=== PATIENT | male | born 1950 | race Hispanic/Latino ===

== ENCOUNTER 2016-07-24 11:50 | Emergency (ER) | payer MEDICARE ==
[2016-07-24 13:13] VITALS: BP 122/74
[2016-07-24 14:03] LABS: Basophils % (Auto) 0.7 % (0.0-1.8); Eosinophils % (Auto) 7.2 % (0.0-4.3); Hematocrit 38.4 % (35.5-45.6); Hemoglobin 12.4 gm/dl (11.8-15.2); Mean Corpuscular HGB Conc 32 % (32-34); Mean Corpuscular Hemoglobin 28 pg (28-32); Mean Corpuscular Volume 88 fl (84-94); Platelet Count 414 K/mm3 (140-440); Red Blood Count 4.37 M/mm3 (3.65-5.03); White Blood Count 8.4 K/mm3 (4.5-11.0)
[2016-07-24 14:05] LABS: Red Cell Distribution Width 20.4 % (13.2-15.2)
[2016-07-24 14:10] LABS: Anion Gap 16 mmol/L; Blood Urea Nitrogen 8 mg/dL (9-20); Calcium 8.3 mg/dL (8.4-10.2); Carbon Dioxide 25 mmol/L (22-30); Chloride 105.3 mmol/L (98-107); Glucose 75 mg/dL (75-100); Sodium 142 mmol/L (137-145)
[2016-07-24 15:10] LABS: Valproate 33.1 ug/mL (50-100)
[2016-07-24 15:11] LABS: Salicylate < 0.3 mg/dL (2.8-20.0)
[2016-07-24 15:49] LABS: Urine Drugs of Abuse Note Disclamer
[2016-07-24 16:08] LABS: Bilirubin,Urine NEG (Negative); Blood,Urine NEG (Negative); Ketones,Urine TR mg/dL (Negative); Leukocyte Esterase,Urine NEG (Negative); Mucus,Urine 3+ /HPF; Nitrite,Urine NEG (Negative); Protein,Urine <15 mg/dL mg/dL (Negative); Uric Acid Crystals,Urine 2+
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
== END 2016-07-24 18:51 | disposition home or self-care (01) ==
LOC: ED 11:50
DX: F29 Unspecified psychosis not due to a substance or known physiological condition (principal); F03.90 Unspecified dementia, unspecified severity, without behavioral disturbance, psychotic disturbance, mood disturbance, and anxiety; Z86.73 Personal history of transient ischemic attack (TIA), and cerebral infarction without residual deficits; F17.200 Nicotine dependence, unspecified, uncomplicated; Z88.0 Allergy status to penicillin
CPT/HCPCS: 36415; 80048; 80164; 80307; 81001; 85025; 99283; G0480; 80320

== ENCOUNTER 2019-03-14 10:51 | Emergency (ER) | payer MEDICARE ==
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
[2019-03-14 13:21] LABS: Basophils # (Auto) 0.1 K/mm3 (0.0-0.1); Basophils % (Auto) 0.9 % (0.0-1.8); Eosinophils # (Auto) 0.2 K/mm3 (0.0-0.4); Eosinophils % (Auto) 2.7 % (0.0-4.3); Hematocrit 45.8 % (35.5-45.6); Hemoglobin 15.5 gm/dl (11.8-15.2); Lymphocytes # (Auto) 2.6 K/mm3 (1.2-5.4); Lymphocytes % (Auto) 31.2 % (13.4-35.0); Mean Corpuscular HGB Conc 34 % (32-34); Mean Corpuscular Volume 96 fl (84-94); Monocytes # (Auto) 0.9 K/mm3 (0.0-0.8); Monocytes % (Auto) 10.4 % (0.0-7.3); Platelet Count 374 K/mm3 (140-440); Red Blood Count 4.76 M/mm3 (3.65-5.03); Red Cell Distribution Width 14.7 % (13.2-15.2)
[2019-03-14 13:52] LABS: Alanine Aminotransferase 18 units/L (7-56); Albumin 3.8 g/dL (3.9-5); BUN/Creatinine Ratio 16; Blood Urea Nitrogen 8 mg/dL (9-20); Calcium 8.7 mg/dL (8.4-10.2); Hemolysis Index 9
[2019-03-14 13:59] LABS: Bilirubin,Urine NEG (Negative); Blood,Urine SM (Negative); Color,Urine Yellow (Yellow); Mucus,Urine FEW /HPF; Protein,Urine <15 mg/dL mg/dL (Negative); Urobilinogen,Urine < 2.0 mg/dL (<2.0)
[2019-03-14 14:07] LABS: Amphetamine Screen,Urine PRESUMPTIVE NEGATIVE; Benzodiazepines Screen,Urine PRESUMPTIVE NEGATIVE; Cannabinoid Screen,Urine PRESUMPTIVE NEGATIVE; Cocaine Screen,Urine PRESUMPTIVE NEGATIVE; Methadone Screen,Urine PRESUMPTIVE NEGATIVE; Opiate Screen,Urine PRESUMPTIVE NEGATIVE
[2019-03-14 18:27] VITALS: BP 140/70
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
== END 2019-03-14 19:05 | disposition home or self-care (01) ==
LOC: ED 10:51
DX: S72.002A Fracture of unspecified part of neck of left femur, initial encounter for closed fracture (principal); S72.001A Fracture of unspecified part of neck of right femur, initial encounter for closed fracture; F20.9 Schizophrenia, unspecified; F03.90 Unspecified dementia, unspecified severity, without behavioral disturbance, psychotic disturbance, mood disturbance, and anxiety; Z88.0 Allergy status to penicillin; Z86.73 Personal history of transient ischemic attack (TIA), and cerebral infarction without residual deficits; F17.200 Nicotine dependence, unspecified, uncomplicated; Y04.8XXA Assault by other bodily force, initial encounter; Y93.89 Activity, other specified; Y92.89 Other specified places as the place of occurrence of the external cause; Y99.8 Other external cause status
CPT/HCPCS: 36415; 80053; 80307; 80320; 81001; 82550; 84443; 85025; 99284; G0480

== ENCOUNTER 2019-09-05 03:24 | Emergency (ER) | payer MEDICARE ==
[2019-09-05] MEDS ORDERED: levETIRAcetam 1000 MG/NS 0.75% 1,000 MG/100 ML BAG IV ONE (07:39)
--- NOTE | 2019-09-05 07:45 | Emergency Department Report ---
ED General Adult HPI - General Chief complaint: Syncope Stated complaint: SEIZURE Time Seen by Provider: 09/05/19 07:27 Source: patient Mode of arrival: Ambulatory Limitations: No Limitations - History of Present Illness Initial comments: Patient is 68 years old male, unknown to me before. Patient brought to the emergency room by police department after patient was found laying on the side walk. Patient is alert and oriented x3 no acute distress. Patient stated that his only medical problem is seizure however patient is in a wheelchair. Patient stated that 2 ladies found him on the sidewalk and a call police. He stated that he does not know what medication that he takes for seizure. Patient denied any headache, neck pain, chest pain, shortness of breath, nausea or vomiting. Patient also denied any new weakness numbness or tingling sensation. Patient is unwilling to provide any more history. Patient is obviously homeless. Patient was seen here 2 days ago for medication refill. His record reviewed by me. - Related Data Home Medications Medication Instructions Recorded Confirmed Last Taken Aspirin 325 mg PO ONCE 03/14/19 03/14/19 Unknown Mirabegron [Myrbetriq] 50 mg PO QDAY 03/14/19 03/14/19 Unknown Allergies Allergy/AdvReac Type Severity Reaction Status Date / Time Penicillins Allergy Rash Verified 07/24/16 13:00 ED Review of Systems ROS: Stated complaint: SEIZURE Other details as noted in HPI Comment: All other systems reviewed and negative Constitutional: denies: chills, malaise Respiratory: denies: cough, shortness of breath, SOB with exertion, wheezing Cardiovascular: denies: chest pain, palpitations Gastrointestinal: denies: abdominal pain, nausea, vomiting Musculoskeletal: denies: back pain Neurological: denies: headache, weakness, numbness, paresthesias, confusion ED Past Medical Hx - Past Medical History Hx CVA: Yes (x2) Hx Seizures: Yes Hx Dementia: Yes - Surgical History Additional Surgical History: bilateral hip repair. Aneurysm repair - Social History Smoking Status: Current Every Day Smoker Substance Use Type: None - Medications Home Medications: Home Medications Medication Instructions Recorded Confirmed Last Taken Type Aspirin 325 mg PO ONCE 03/14/19 03/14/19 Unknown History Mirabegron [Myrbetriq] 50 mg PO QDAY 03/14/19 03/14/19 Unknown History ED Physical Exam - General Limitations: No Limitations General appearance: alert, in no apparent distress - Head Head exam: Present: atraumatic, normocephalic, normal inspection - Eye Eye exam: Present: normal appearance, PERRL - ENT ENT exam: Present: normal exam, normal orophraynx, mucous membranes moist - Neck Neck exam: Present: normal inspection, full ROM. Absent: tenderness, meningismus, lymphadenopathy, thyromegaly - Respiratory Respiratory exam: Present: normal lung sounds bilaterally - Cardiovascular Cardiovascular Exam: Present: regular rate, normal rhythm, normal heart sounds - GI/Abdominal GI/Abdominal exam: Present: soft, normal bowel sounds. Absent: distended, tenderness, guarding, rebound, rigid, organomegaly, mass, bruit, pulsatile mass, hernia - Extremities Exam Extremities exam: Present: normal inspection, full ROM, normal capillary refill. Absent: tenderness, pedal edema, calf tenderness - Back Exam Back exam: Present: normal inspection, full ROM. Absent: CVA tenderness (R), CVA tenderness (L), muscle spasm, paraspinal tenderness, vertebral tenderness - Neurological Exam Neurological exam: Present: alert, oriented X3, CN II-XII intact - Psychiatric Psychiatric exam: Present: normal mood. Absent: homicidal ideation, suicidal ideation - Skin Skin exam: Present: warm, intact, normal color ED Course Vital Signs 09/05/19 09/05/19 09/05/19 06:07 06:39 06:40 Temperature 97.7 F Pulse Rate 81 56 L Respiratory 18 11 L 16 Rate Blood Pressure Blood Pressure 105/62 [Left] Blood Pressure [Right] O2 Sat by Pulse 96 97 Oximetry 09/05/19 09/05/19 09/05/19 07:00 07:53 08:00 Temperature 98.3 F Pulse Rate 58 L 61 Respiratory 18 18 19 Rate Blood Pressure 103/60 125/71 Blood Pressure 103/60 [Left] Blood Pressure [Right] O2 Sat by Pulse 95 95 98 Oximetry 09/05/19 09/05/19 09/05/19 09:01 10:01 11:01 Temperature Pulse Rate 60 62 74 Respiratory 14 13 17 Rate Blood Pressure 125/71 125/71 125/71 Blood Pressure [Left] Blood Pressure [Right] O2 Sat by Pulse 98 96 96 Oximetry 09/05/19 09/05/19 12:00 12:02 Temperature 98.3 F Pulse Rate 56 L 56 L Respiratory 12 14 Rate Blood Pressure 112/56 Blood Pressure [Left] Blood Pressure 120/62 [Right] O2 Sat by Pulse 96 96 Oximetry ED Medical Decision Making - Lab Data Result diagrams: 09/05/19 09:36 09/05/19 09:36 - EKG Data -: EKG Interpreted by Me EKG shows normal: sinus rhythm Rate: normal - EKG Data Interpretation: no acute changes - Radiology Data Radiology results: report reviewed - Medical Decision Making Patient is 68 years old male, unknown to me before. Patient brought to the emergency room by police department after patient was found laying on the side walk. Patient is alert and oriented x3 no acute distress. Patient stated that his only medical problem is seizure however patient is in a wheelchair. Patient stated that 2 ladies found him on the sidewalk and a call police. He stated that he does not know what medication that he takes for seizure. Patient denied any headache, neck pain, chest pain, shortness of breath, nausea or vomiting. Patient also denied any new weakness numbness or tingling sensation. Patient is unwilling to provide any more history. Patient is obviously homeless. Patient was seen here 2 days ago for medication refill. His record reviewed by me. Patient received 1 g of Keppra IV. Labs reviewed and is unremarkable. CT brain is negative for acute finding. Case management consulted for placement. Patient given prescription for Keppra and follow-up with Dr. Jama neurologist. Patient also advised to return to the ER if he develop any new symptoms. Critical care attestation.: If time is entered above; I have spent that time in minutes in the direct care of this critically ill patient, excluding procedure time. ED Disposition Clinical Impression: Seizure, Homeless Disposition: DC-01 TO HOME OR SELFCARE Is pt being admited?: No Condition: Stable Instructions: Recurrent Seizures Adult (ED) Referrals: PRIMARY CARE, [Primary Care Provider] - 3-5 Days
--- NOTE | 2019-09-05 08:52 | Cat Scan Report ---
Examination: CT of the head without contrast Clinical information: Syncope for 2 days. Comparison: None Technical: Multiple axial CT images of the head were obtained without intravenous contrast. Sagittal and coronal reformats were obtained. All CTs at this facility utilize dose reduction techniques inc luding automated exposure control, iterative reconstruction and weight based dosing when appropriate to reduce patient radiation dose to as low as reasonable achievable. Findings: Postsurgical changes from right convexity craniotomy are noted with ex vacuo dilatation of the right lateral ventricle. The ventricular system appears mildly prominent. There is no evidence of acute int racranial hemorrhage. Generalized sulcal prominence is noted related to moderate generalized parenchy mal volume loss. Evaluation of bony structures demonstrate postsurgical changes of the calvarium. No acute bony abnorm ality is visualized. The paranasal sinuses and mastoid air cells appear clear. Impression: 1. Postsurgical changes from right convexity craniotomy. 2. Mild prominence of the ventricular system which is thought to be a chronic finding, although this is difficult to determine without prior examinations for comparison. Please correlate with patient's clinical information. Signer Name: Carmencita Forrest MD Signed: 09/05/2019 8:48 AM Workstation Name: [id number]
[2019-09-05 10:34] LABS: Basophils # (Auto) 0.1 K/mm3 (0.0-0.1); Basophils % (Auto) 1.1 % (0.0-1.8); Eosinophils # (Auto) 0.3 K/mm3 (0.0-0.4); Eosinophils % (Auto) 3.4 % (0.0-4.3); Hematocrit 43.5 % (35.5-45.6); Hemoglobin 14.5 gm/dl (11.8-15.2); Lymphocytes # (Auto) 2.3 K/mm3 (1.2-5.4); Mean Corpuscular HGB Conc 33 % (32-34); Mean Corpuscular Volume 94 fl (84-94); Monocytes # (Auto) 0.8 K/mm3 (0.0-0.8); Platelet Count 275 K/mm3 (140-440); Red Blood Count 4.63 M/mm3 (3.65-5.03); Red Cell Distribution Width 15.7 % (13.2-15.2)
[2019-09-05 10:47] LABS: Albumin 3.2 g/dL (3.9-5); BUN/Creatinine Ratio 40; Blood Urea Nitrogen 20 mg/dL (9-20); Calcium 8.7 mg/dL (8.4-10.2); Hemolysis Index 98
[2019-09-05 12:02] LABS: Alanine Aminotransferase 11 units/L (7-56)
[2019-09-05 14:58] VITALS: BP 135/70
== END 2019-09-05 14:58 | disposition home or self-care (01) ==
LOC: ED 03:24
DX: R56.9 Unspecified convulsions (principal); F03.90 Unspecified dementia, unspecified severity, without behavioral disturbance, psychotic disturbance, mood disturbance, and anxiety; F17.200 Nicotine dependence, unspecified, uncomplicated; Z98.890 Other specified postprocedural states; Z86.73 Personal history of transient ischemic attack (TIA), and cerebral infarction without residual deficits; Z88.0 Allergy status to penicillin
CPT/HCPCS: 36415; 70450; 80053; 84484; 85025; 93005; 93010; 96374; 99284; J1953

== ENCOUNTER 2019-09-09 17:13 | Emergency (ER) | payer MEDICARE ==
--- NOTE | 2019-09-09 17:35 | Emergency Department Report ---
Blank Doc - Documentation Documentation: 68-year-old male that presents with SI and SZ like activity. 1- This initial assessment/diagnostic orders/clinical plan/ treatment(s) is/are subject to change based on pt's health status, clinical progression and re- assessment by fellow clinical providers in the ED. Further treatment and workup at subsequent clinical provers discretion. Patient/guardians urged not to elope from ED as their condition may be serious if not clinically assessed and managed. 2-labs 3- EKG 4- psych protocol ordered
[2019-09-09 18:17] LABS: Hematocrit 45.2 % (35.5-45.6); Hemoglobin 15.2 gm/dl (11.8-15.2); Mean Corpuscular HGB Conc 34 % (32-34); Mean Corpuscular Volume 94 fl (84-94); Platelet Count 306 K/mm3 (140-440); Red Blood Count 4.79 M/mm3 (3.65-5.03); Red Cell Distribution Width 15.6 % (13.2-15.2)
[2019-09-09 18:41] LABS: Alanine Aminotransferase 17 units/L (7-56); Albumin 3.6 g/dL (3.9-5); BUN/Creatinine Ratio 19; Blood Urea Nitrogen 13 mg/dL (9-20); Calcium 8.9 mg/dL (8.4-10.2); Hemolysis Index 19
[2019-09-09] MEDS ORDERED: levETIRAcetam 500 MG TAB PO ONE (18:43)
--- NOTE | 2019-09-09 18:53 | Emergency Department Report ---
<MARVIN REDDY - Last Filed: 09/11/19 21:42> ED General Adult HPI - General Chief complaint: Seizure Stated complaint: SEIZURE Time Seen by Provider: 09/09/19 17:34 - Related Data Home Medications Medication Instructions Recorded Confirmed Last Taken Aspirin 325 mg PO ONCE 03/14/19 03/14/19 Unknown Mirabegron [Myrbetriq] 50 mg PO QDAY 03/14/19 03/14/19 Unknown Previous Rx's Medication Instructions Recorded Last Taken Type levETIRAcetam [Keppra TAB] 750 mg PO BID #60 tablet 09/05/19 Unknown Rx Nitrofurantoin Roane/M-Cryst 100 mg PO Q12HR #13 capsule 09/09/19 Unknown Rx [Macrobid CAP] levETIRAcetam [Keppra TAB] 750 mg PO BID #60 tablet 09/09/19 Unknown Rx Allergies Allergy/AdvReac Type Severity Reaction Status Date / Time Penicillins Allergy Rash Verified 07/24/16 13:00 ED Past Medical Hx - Medications Home Medications: Home Medications Medication Instructions Recorded Confirmed Last Taken Type Aspirin 325 mg PO ONCE 03/14/19 03/14/19 Unknown History Mirabegron [Myrbetriq] 50 mg PO QDAY 03/14/19 03/14/19 Unknown History levETIRAcetam [Keppra TAB] 750 mg PO BID #60 tablet 09/05/19 Unknown Rx Nitrofurantoin Roane/M-Cryst 100 mg PO Q12HR #13 capsule 09/09/19 Unknown Rx [Macrobid CAP] levETIRAcetam [Keppra TAB] 750 mg PO BID #60 tablet 09/09/19 Unknown Rx ED Course - Reevaluation(s) Reevaluation #3: 09/11/19 21:42 I was asked by the nurse to examine Mr. Neves as he complained of itching into his private area. Mr. Perry stated that he had this problem for few months. He describes itching. He denied any fever. No penile discharge. No evidence of active blisters. No clinical evidence of candidiasis. Patient given a Benadryl tablet. ED Medical Decision Making - Lab Data Result diagrams: 09/09/19 18:03 09/09/19 18:03 ED Disposition Clinical Impression: History of seizure, Case management patient Dementia Qualifiers: Dementia type: unspecified type Dementia behavioral disturbance: with behavioral disturbance Qualified Code(s): F03.91 - Unspecified dementia with behavioral disturbance Disposition: DC-01 TO HOME OR SELFCARE Condition: Stable Additional Instructions: Cultures were sent today, and results will be available in the next 3 to 5 days. Take the antibiotics as directed, and have a primary care doctor contact the medical records department to obtain culture results. Take the seizure medications as directed. Do not drive or operate motor vehicles for the next 6 months. Return to the emergency room right away with new, worsened or different symptoms, or symptoms not present on the initial emergency room evaluation. Prescriptions: levETIRAcetam [Keppra TAB] 750 mg PO BID #60 tablet Nitrofurantoin Roane/M-Cryst [Macrobid CAP] 100 mg PO Q12HR #13 capsule Referrals: CARMITA SCHULTZ MD [Staff Physician] - 3-5 Days [facility] [Provider Group] - 3-5 Days <MAGALY TAN - Last Filed: 09/13/19 19:57> ED General Adult HPI - General PUI?: No Source: patient, EMS ( EMS documentation not available at time of chart dictation ), RN notes reviewed, old records reviewed Mode of arrival: Wheelchair Limitations: Physical Limitation, Other (The patient is a poor historian) - History of Present Illness Initial comments: This is a 68-year-old gentleman. I have evaluated this patient in the past. Past medical history includes dementia, bilateral hip prosthesis, possible seizure. The patient formally was in a shelter, but reports that he is not currently in a shelter at this time. He reports that he stays out in a wheelchair near a local [place] station. He is brought to the hospital for possible seizure. The patient states that a bystander stated that he had a seizure today. The patient does not recall the event. The patient denies physical pain. The patient denies cough and urinary symptoms. The patient denies new weakness. The patient made some comments about feeling suicidal. The patient tells me he does not want to overdose on anything. The patient tells me that he is receiving a debit card with his monthly SSI, and that he was staying at a hotel, but they kicked him out because he could not pay his bills. The patient is a rather poor historian, and has difficulties describing exacerbating or relieving factors, or qualitative nature of the possible seizure. He is not accompanied by friends or family for additional collateral information at this time. -: unknown Quality: other Consistency: other Improves with: other Worsens with: other Associated Symptoms: other Treatments Prior to Arrival: other ED Review of Systems ROS: Stated complaint: SEIZURE Other details as noted in HPI Constitutional: denies: fever Eyes: denies: eye discharge ENT: denies: congestion Respiratory: denies: wheezing Cardiovascular: denies: syncope Gastrointestinal: denies: vomiting Genitourinary: as per HPI Skin: as per HPI Neurological: as per HPI Psychiatric: as per HPI Hematological/Lymphatic: as per HPI ED Past Medical Hx - Past Medical History Previous Medical History?: Yes Hx CVA: Yes (x2) Hx Seizures: Yes Hx Dementia: Yes - Surgical History Past Surgical History?: Yes Additional Surgical History: bilateral hip repair. Aneurysm repair - Social History Smoking Status: Never Smoker Substance Use Type: None ED Physical Exam - General Limitations: Physical Limitation, Other (Patient is a poor historian) General appearance: alert, in no apparent distress - Head Head exam: Present: normocephalic, other (Nasal abrasion is noted) - Eye Eye exam: Present: normal appearance, EOMI, other (Visual acuity is intact to finger counting and color perception at a close distance). Absent: nystagmus - ENT ENT exam: Present: normal exam, mucous membranes moist, normal external ear exam - Neck Neck exam: Present: normal inspection, full ROM. Absent: tenderness, meningismus - Respiratory Respiratory exam: Present: decreased breath sounds. Absent: respiratory distress - Cardiovascular Cardiovascular Exam: Present: regular rate, normal rhythm, normal heart sounds. Absent: bradycardia, tachycardia, irregular rhythm, systolic murmur, diastolic murmur, rubs, gallop - GI/Abdominal GI/Abdominal exam: Present: soft. Absent: distended, tenderness, guarding, rebound, rigid, pulsatile mass - Rectal Rectal exam: Present: deferred - Extremities Exam Extremities exam: Present: normal inspection (There is a left upper extremity contracture. There is a left hip abrasion), other (2+ pulses noted in the bilateral upper and lower extremities. There is no palpable cord. negative Homans sign. Muscular compartments are soft. The pelvis is stable.) - Back Exam Back exam: Present: normal inspection. Absent: tenderness, CVA tenderness (R), CVA tenderness (L), paraspinal tenderness, vertebral tenderness - Neurological Exam Neurological exam: Present: alert, oriented X3, other (There is no facial droop. The tongue is midline. The extraocular movements are intact bilaterally. Left upper extremity contracture is noted. 5/5 strength bilateral lower extremities and right upper extremity. Sensation is intact to light touch in 4 extremities) - Psychiatric Psychiatric exam: Present: agitated - Skin Skin exam: Present: warm, abrasion (Abrasion noted to left lateral thigh) ED Course Vital Signs 09/09/19 09/09/19 09/09/19 17:15 17:19 18:30 Temperature 99.9 F H 99.9 F H 98.4 F Pulse Rate 92 H 82 Respiratory 18 18 18 Rate Blood Pressure 108/66 108/66 Blood Pressure [Left] Blood Pressure [Right] O2 Sat by Pulse 97 97 100 Oximetry 09/09/19 09/09/19 09/09/19 18:43 18:45 19:00 Temperature Pulse Rate 84 85 82 Respiratory 19 18 18 Rate Blood Pressure 112/64 112/64 Blood Pressure [Left] Blood Pressure [Right] O2 Sat by Pulse 98 98 98 Oximetry 09/09/19 09/09/19 09/09/19 19:15 19:19 19:30 Temperature Pulse Rate 83 85 95 H Respiratory 20 21 15 Rate Blood Pressure 111/56 111/56 111/56 Blood Pressure [Left] Blood Pressure [Right] O2 Sat by Pulse 99 98 99 Oximetry 09/09/19 09/09/19 09/09/19 19:45 20:01 20:15 Temperature Pulse Rate 86 81 83 Respiratory 19 18 20 Rate Blood Pressure 111/56 111/56 111/56 Blood Pressure [Left] Blood Pressure [Right] O2 Sat by Pulse 98 98 98 Oximetry 09/09/19 09/09/19 09/09/19 20:31 20:45 21:01 Temperature Pulse Rate 77 71 95 H Respiratory 15 18 17 Rate Blood Pressure 111/56 111/56 111/56 Blood Pressure [Left] Blood Pressure [Right] O2 Sat by Pulse 97 98 98 Oximetry 09/09/19 09/09/19 09/09/19 21:15 21:43 21:45 Temperature Pulse Rate 95 H 77 78 Respiratory 22 19 17 Rate Blood Pressure 111/56 111/56 119/56 Blood Pressure [Left] Blood Pressure [Right] O2 Sat by Pulse 96 98 99 Oximetry 09/09/19 09/09/19 09/09/19 22:01 22:15 22:30 Temperature Pulse Rate 75 69 77 Respiratory 20 16 18 Rate Blood Pressure 95/58 107/56 120/54 Blood Pressure [Left] Blood Pressure [Right] O2 Sat by Pulse 99 99 97 Oximetry 09/09/19 09/09/19 09/09/19 22:45 23:00 23:15 Temperature Pulse Rate 74 77 76 Respiratory 19 16 17 Rate Blood Pressure 115/62 126/67 113/69 Blood Pressure [Left] Blood Pressure [Right] O2 Sat by Pulse 98 99 99 Oximetry 09/09/19 09/09/19 09/10/19 23:30 23:45 00:01 Temperature Pulse Rate 90 82 76 Respiratory 21 15 18 Rate Blood Pressure 126/78 124/76 124/79 Blood Pressure [Left] Blood Pressure [Right] O2 Sat by Pulse 93 100 99 Oximetry 09/10/19 09/10/19 09/10/19 00:15 00:31 00:45 Temperature Pulse Rate 78 82 79 Respiratory 20 18 13 Rate Blood Pressure 132/78 132/78 132/78 Blood Pressure [Left] Blood Pressure [Right] O2 Sat by Pulse 98 100 98 Oximetry 09/10/19 09/10/19 09/10/19 01:00 01:15 01:30 Temperature Pulse Rate 71 68 68 Respiratory 19 12 17 Rate Blood Pressure 124/59 124/59 135/75 Blood Pressure [Left] Blood Pressure [Right] O2 Sat by Pulse 99 99 98 Oximetry 09/10/19 09/10/19 09/10/19 01:45 02:00 02:15 Temperature Pulse Rate 63 67 69 Respiratory 16 15 17 Rate Blood Pressure 140/76 138/73 137/85 Blood Pressure [Left] Blood Pressure [Right] O2 Sat by Pulse 99 99 99 Oximetry 09/10/19 09/10/19 09/10/19 02:31 02:45 03:00 Temperature Pulse Rate 65 65 64 Respiratory 15 15 17 Rate Blood Pressure 156/80 148/78 131/61 Blood Pressure [Left] Blood Pressure [Right] O2 Sat by Pulse 100 99 99 Oximetry 09/10/19 09/10/19 09/10/19 03:15 03:30 03:45 Temperature Pulse Rate 66 62 60 Respiratory 13 14 17 Rate Blood Pressure 131/61 143/68 148/69 Blood Pressure [Left] Blood Pressure [Right] O2 Sat by Pulse 100 99 99 Oximetry 09/10/19 09/10/19 09/10/19 04:00 04:15 04:30 Temperature Pulse Rate 59 L 60 58 L Respiratory 16 16 15 Rate Blood Pressure 127/60 148/69 118/48 Blood Pressure [Left] Blood Pressure [Right] O2 Sat by Pulse 98 98 97 Oximetry 09/10/19 09/10/19 09/10/19 04:45 05:00 05:15 Temperature Pulse Rate 58 L 55 L 57 L Respiratory 16 14 15 Rate Blood Pressure 120/60 124/60 122/62 Blood Pressure [Left] Blood Pressure [Right] O2 Sat by Pulse 96 97 95 Oximetry 09/10/19 09/10/19 09/10/19 05:31 05:45 06:01 Temperature Pulse Rate 58 L 57 L 54 L Respiratory 13 15 14 Rate Blood Pressure 139/51 115/54 128/54 Blood Pressure [Left] Blood Pressure [Right] O2 Sat by Pulse 96 95 96 Oximetry 09/10/19 09/10/19 09/10/19 06:15 07:00 08:01 Temperature Pulse Rate 56 L 58 L 61 Respiratory 15 15 14 Rate Blood Pressure 128/55 103/55 132/51 Blood Pressure [Left] Blood Pressure [Right] O2 Sat by Pulse 96 96 97 Oximetry 09/10/19 09/10/19 09/10/19 09:00 10:00 11:00 Temperature Pulse Rate 62 64 69 Respiratory 12 16 18 Rate Blood Pressure 123/65 103/53 114/66 Blood Pressure [Left] Blood Pressure [Right] O2 Sat by Pulse 98 98 98 Oximetry 09/10/19 09/10/19 09/10/19 12:00 13:01 14:00 Temperature Pulse Rate 62 68 74 Respiratory 16 17 20 Rate Blood Pressure 99/56 108/40 115/68 Blood Pressure [Left] Blood Pressure [Right] O2 Sat by Pulse 98 98 98 Oximetry 09/10/19 09/10/19 09/10/19 15:00 16:00 17:01 Temperature Pulse Rate 72 80 64 Respiratory 15 19 17 Rate Blood Pressure 115/68 113/63 96/43 Blood Pressure [Left] Blood Pressure [Right] O2 Sat by Pulse 97 99 97 Oximetry 09/10/19 09/10/19 09/10/19 18:00 20:00 20:31 Temperature 99.0 F Pulse Rate 77 79 Respiratory 18 18 19 Rate Blood Pressure 97/35 Blood Pressure 92/56 [Left] Blood Pressure [Right] O2 Sat by Pulse 96 96 Oximetry 09/10/19 09/10/19 09/10/19 20:55 21:00 21:25 Temperature Pulse Rate 75 Respiratory 18 22 18 Rate Blood Pressure 108/61 Blood Pressure [Left] Blood Pressure [Right] O2 Sat by Pulse 96 Oximetry 09/10/19 09/10/19 09/10/19 22:30 23:00 23:15 Temperature Pulse Rate 67 63 64 Respiratory 19 19 18 Rate Blood Pressure 97/51 101/45 101/45 Blood Pressure [Left] Blood Pressure [Right] O2 Sat by Pulse 97 98 98 Oximetry 09/10/19 09/11/19 09/11/19 23:49 00:30 00:45 Temperature Pulse Rate 58 L 54 L 58 L Respiratory 18 17 17 Rate Blood Pressure 109/56 102/39 102/42 Blood Pressure [Left] Blood Pressure [Right] O2 Sat by Pulse 97 98 98 Oximetry 09/11/19 09/11/19 09/11/19 01:00 01:45 02:07 Temperature 98.0 F 98.0 F Pulse Rate 57 L 70 57 L Respiratory 17 16 17 Rate Blood Pressure 101/49 Blood Pressure 102/45 102/45 [Left] Blood Pressure [Right] O2 Sat by Pulse 98 98 98 Oximetry 09/11/19 09/11/19 09/11/19 04:01 04:03 04:30 Temperature Pulse Rate 63 63 73 Respiratory 16 16 14 Rate Blood Pressure 111/51 102/64 Blood Pressure 111/51 [Left] Blood Pressure [Right] O2 Sat by Pulse 98 98 96 Oximetry 09/11/19 09/11/19 09/11/19 05:15 06:45 07:00 Temperature Pulse Rate 54 L 53 L 56 L Respiratory 16 16 16 Rate Blood Pressure 131/60 136/74 93/53 Blood Pressure [Left] Blood Pressure [Right] O2 Sat by Pulse 98 97 97 Oximetry 09/11/19 09/11/19 09/11/19 07:15 07:30 07:45 Temperature Pulse Rate 59 L 72 56 L Respiratory 17 13 15 Rate Blood Pressure 91/53 98/67 109/56 Blood Pressure [Left] Blood Pressure [Right] O2 Sat by Pulse 97 98 98 Oximetry 09/11/19 09/11/19 09/11/19 08:00 08:15 08:31 Temperature Pulse Rate 63 60 66 Respiratory 16 16 17 Rate Blood Pressure 107/60 102/60 102/60 Blood Pressure [Left] Blood Pressure [Right] O2 Sat by Pulse 98 99 96 Oximetry 09/11/19 09/11/19 09/11/19 08:45 09:00 10:15 Temperature Pulse Rate 71 62 Respiratory 22 18 16 Rate Blood Pressure 101/61 99/53 Blood Pressure [Left] Blood Pressure [Right] O2 Sat by Pulse 98 98 Oximetry 09/11/19 09/11/19 09/12/19 18:37 19:10 01:21 Temperature 98.6 F 98.3 F Pulse Rate 66 62 66 Respiratory 16 16 16 Rate Blood Pressure Blood Pressure 104/32 100/60 [Left] Blood Pressure 102/66 [Right] O2 Sat by Pulse 96 98 Oximetry 09/12/19 09/12/19 09/12/19 02:00 03:00 04:26 Temperature Pulse Rate 68 66 77 Respiratory 17 16 20 Rate Blood Pressure 121/66 124/93 Blood Pressure [Left] Blood Pressure 121/66 [Right] O2 Sat by Pulse 98 98 97 Oximetry 09/12/19 09/12/19 09/12/19 05:00 06:00 07:00 Temperature Pulse Rate 68 Respiratory 14 15 14 Rate Blood Pressure 121/47 109/70 106/73 Blood Pressure [Left] Blood Pressure [Right] O2 Sat by Pulse 96 98 100 Oximetry 09/12/19 09/12/19 09/12/19 07:45 08:00 08:12 Temperature 97.6 F 97.6 F Pulse Rate 95 H 60 Respiratory 16 20 Rate Blood Pressure 110/62 Blood Pressure [Left] Blood Pressure 106/73 [Right] O2 Sat by Pulse 96 99 Oximetry 09/12/19 09/12/19 09/12/19 09:00 10:00 11:00 Temperature Pulse Rate 64 72 65 Respiratory 17 13 16 Rate Blood Pressure 113/57 118/97 118/97 Blood Pressure [Left] Blood Pressure [Right] O2 Sat by Pulse 99 98 98 Oximetry 0409/12/19 09/12/19 12:00 13:00 14:00 Temperature Pulse Rate 64 78 92 H Respiratory 15 16 17 Rate Blood Pressure 97/60 97/60 99/53 Blood Pressure [Left] Blood Pressure [Right] O2 Sat by Pulse 99 97 97 Oximetry 09/12/19 09/12/19 09/12/19 15:00 16:00 17:00 Temperature Pulse Rate 92 H 73 66 Respiratory 18 19 12 Rate Blood Pressure 99/53 94/58 92/38 Blood Pressure [Left] Blood Pressure [Right] O2 Sat by Pulse 98 99 Oximetry 09/12/19 09/12/19 09/12/19 18:00 19:54 20:03 Temperature 98.8 F Pulse Rate 87 80 Respiratory 20 20 20 Rate Blood Pressure 92/38 Blood Pressure [Left] Blood Pressure 114/64 [Right] O2 Sat by Pulse 97 98 98 Oximetry 09/12/19 09/13/19 09/13/19 23:48 00:48 01:00 Temperature 98.8 F Pulse Rate 72 Respiratory 20 20 20 Rate Blood Pressure Blood Pressure [Left] Blood Pressure 95/49 [Right] O2 Sat by Pulse 98 Oximetry 09/13/19 09/13/19 08:00 11:00 Temperature Pulse Rate Respiratory Rate Blood Pressure 102/62 106/40 Blood Pressure [Left] Blood Pressure [Right] O2 Sat by Pulse 98 97 Oximetry - Reevaluation(s) Reevaluation #1: 09/09/19 20:11 Differential diagnosis, including but not limited to: Seizure, electrolyte derangement, pneumonia, urinary tract infection, noncompliance, intracranial injury, cervical spine injury, homelessness, case management patient, dementia Assessment and plan: 68-year-old gentleman who appears to be undomiciled at this time, has a known history of dementia, does not exhibit the ability to care for himself independently at this time, likely secondary to dementia, with possible seizure and nonspecific psychiatric complaints. The patient is afebrile with reassuring vital signs at this time. He is pleasant, calm and cooperative. Physical exam fairly unremarkable appears to be similar to prior physical examinations. Given history of underlying dementia, uncertain history of seizure and/or head trauma, CT scan brain and cervical spine will be obtained. Screening laboratory studies so far are reviewed and appreciated, they are fairly unremarkable, urinalysis is reviewed and appreciated, patient will be started on empiric antibiotics. A case management consultation and psychiatric consultation have been requested, patient will require evaluation by both to assist with safe placement and disposition once medically cleared in the emergency room. Reevaluation #2: 09/09/19 22:52 ct c spine negative no convulsive activity thus far after 6 hours in the er medically appropriate for outpatient management at this time pending psych and case management eval at this time ED Medical Decision Making - Lab Data Result diagrams: 09/09/19 18:03 09/09/19 18:03 Vital Signs 09/09/19 09/09/19 09/09/19 17:15 17:19 18:30 Temperature 99.9 F H 99.9 F H 98.4 F Pulse Rate 92 H 82 Respiratory 18 18 18 Rate Blood Pressure 108/66 108/66 O2 Sat by Pulse 97 97 100 Oximetry 09/09/19 09/09/19 09/09/19 18:43 18:45 19:00 Temperature Pulse Rate 84 85 82 Respiratory 19 18 18 Rate Blood Pressure 112/64 112/64 O2 Sat by Pulse 98 98 98 Oximetry 09/09/19 19:15 Temperature Pulse Rate 83 Respiratory 20 Rate Blood Pressure 111/56 O2 Sat by Pulse 99 Oximetry Lab Results 09/09/19 09/09/19 09/09/19 Range/Units 18:03 18:03 18:03 WBC 11.7 H (4.5-11.0) K/mm3 RBC 4.79 (3.65-5.03) M/mm3 Hgb 15.2 (11.8-15.2) gm/dl Hct 45.2 (35.5-45.6) % MCV 94 (84-94) fl MCH 32 (28-32) pg MCHC 34 (32-34) % RDW 15.6 H (13.2-15.2) % Plt Count 306 (140-440) K/mm3 [place] % (Auto) Crisis Counselor Add Manual Diff Complete Total Counted 100 Seg Neuts % (Manual) 63.0 (40.0-70.0) % Band Neutrophils % 0 % Lymphocytes % (Manual) 23.0 (13.4-35.0) % Reactive Lymphs % (Man) 0 % Monocytes % (Manual) 10.0 H (0.0-7.3) % Eosinophils % (Manual) 2.0 (0.0-4.3) % Basophils % (Manual) 2.0 H (0.0-1.8) % Metamyelocytes % 0 % Myelocytes % 0 % Promyelocytes % 0 % Blast Cells % 0 % Nucleated RBC % Not Reportable Seg Neutrophils # Man 7.4 (1.8-7.7) K/mm3 Band Neutrophils # 0.0 K/mm3 Lymphocytes # (Manual) 2.7 (1.2-5.4) K/mm3 Abs React Lymphs (Man) 0.0 K/mm3 Monocytes # (Manual) 1.2 H (0.0-0.8) K/mm3 Eosinophils # (Manual) 0.2 (0.0-0.4) K/mm3 Basophils # (Manual) 0.2 H (0.0-0.1) K/mm3 Metamyelocytes # 0.0 K/mm3 Myelocytes # 0.0 K/mm3 Promyelocytes # 0.0 K/mm3 Blast Cells # 0.0 K/mm3 WBC Morphology Not Reportable Hypersegmented Neuts Not Reportable Hyposegmented Neuts Not Reportable Hypogranular Neuts Not Reportable Smudge Cells Not Reportable Toxic Granulation Not Reportable Toxic Vacuolation Not Reportable Dohle Bodies Not Reportable Pelger-Huet Anomaly Not Reportable Tello Rods Not Reportable Platelet Estimate Consistent w auto Clumped Platelets Not Reportable Plt Clumps, EDTA Not Reportable Large Platelets Few Giant Platelets Not Reportable Platelet Satelliting Not Reportable Plt Morphology Comment Not Reportable RBC Morphology Not Reportable Dimorphic RBCs Not Reportable Polychromasia Not Reportable Hypochromasia Not Reportable Poikilocytosis Not Reportable Anisocytosis Few Microcytosis Not Reportable Macrocytosis Not Reportable Spherocytes Not Reportable Pappenheimer Bodies Not Reportable Sickle Cells Not Reportable Target Cells Not Reportable Tear Drop Cells Not Reportable Ovalocytes Not Reportable Stomatocytes Few Helmet Cells Not Reportable Turpin-[place] Bodies Not Reportable [place] Rings Not Reportable Gardner Cells Not Reportable Bite Cells Not Reportable Crenated Cell Not Reportable Elliptocytes Not Reportable Acanthocytes (Spur) Not Reportable Rouleaux Not Reportable Hemoglobin C Crystals Not Reportable Schistocytes Not Reportable Malaria parasites Not Reportable Villa Bodies Not Reportable Hem Pathologist Commnt No Sodium 143 (137-145) mmol/L Potassium 3.7 (3.6-5.0) mmol/L Chloride 105.4 (98-107) mmol/L Carbon Dioxide 28 (22-30) mmol/L Anion Gap 13 mmol/L BUN 13 (9-20) mg/dL Creatinine 0.7 L (0.8-1.5) mg/dL Estimated GFR > 60 ml/min BUN/Creatinine Ratio 19 % Glucose 95 (75-100) mg/dL Calcium 8.9 (8.4-10.2) mg/dL Magnesium (1.7-2.3) mg/dL Total Bilirubin 0.60 (0.1-1.2) mg/dL AST 19 (5-40) units/L ALT 17 (7-56) units/L Alkaline Phosphatase 126 (35-129) units/L Total Creatine Kinase (55-170) units/L Total Protein 7.7 (6.3-8.2) g/dL Albumin 3.6 L (3.9-5) g/dL Albumin/Globulin Ratio 0.9 % Urine Color (Yellow) Urine Turbidity (Clear) Urine pH (5.0-7.0) Ur Specific [place] (1.003-1.030) Urine Protein (Negative) mg/dL Urine Glucose (UA) (Negative) mg/dL Urine Ketones (Negative) mg/dL Urine Blood (Negative) Urine Nitrite (Negative) Urine Bilirubin (Negative) Urine Urobilinogen (<2.0) mg/dL Ur Leukocyte Esterase (Negative) Urine WBC (Auto) (0.0-6.0) /HPF Urine RBC (Auto) (0.0-6.0) /HPF U Epithel Cells (Auto) (0-13.0) /HPF Urine Bacteria (Auto) (Negative) /HPF Urine Mucus /HPF Salicylates < 0.3 L (2.8-20.0) mg/dL Urine Opiates Screen Urine Methadone Screen Acetaminophen (10.0-30.0) ug/mL Ur Barbiturates Screen Ur Phencyclidine Scrn Ur Amphetamines Screen U Benzodiazepines Scrn Urine Cocaine Screen U Marijuana (THC) Screen Drugs of Abuse Note Plasma/Serum Alcohol (0-0.07) % 09/09/19 09/09/19 09/09/19 Range/Units 18:03 18:03 18:03 WBC (4.5-11.0) K/mm3 RBC (3.65-5.03) M/mm3 Hgb (11.8-15.2) gm/dl Hct (35.5-45.6) % MCV (84-94) fl MCH (28-32) pg MCHC (32-34) % RDW (13.2-15.2) % Plt Count (140-440) K/mm3 [place] % (Auto) Add Manual Diff Total Counted Seg Neuts % (Manual) (40.0-70.0) % Band Neutrophils % % Lymphocytes % (Manual) (13.4-35.0) % Reactive Lymphs % (Man) % Monocytes % (Manual) (0.0-7.3) % Eosinophils % (Manual) (0.0-4.3) % Basophils % (Manual) (0.0-1.8) % Metamyelocytes % % Myelocytes % % Promyelocytes % % Blast Cells % % Nucleated RBC % Seg Neutrophils # Man (1.8-7.7) K/mm3 Band Neutrophils # K/mm3 Lymphocytes # (Manual) (1.2-5.4) K/mm3 Abs React Lymphs (Man) K/mm3 Monocytes # (Manual) (0.0-0.8) K/mm3 Eosinophils # (Manual) (0.0-0.4) K/mm3 Basophils # (Manual) (0.0-0.1) K/mm3 Metamyelocytes # K/mm3 Myelocytes # K/mm3 Promyelocytes # K/mm3 Blast Cells # K/mm3 WBC Morphology Hypersegmented Neuts Hyposegmented Neuts Hypogranular Neuts Smudge Cells Toxic Granulation Toxic Vacuolation Dohle Bodies Pelger-Huet Anomaly Tello Rods Platelet Estimate Clumped Platelets Plt Clumps, EDTA Large Platelets Giant Platelets Platelet Satelliting Plt Morphology Comment RBC Morphology Dimorphic RBCs Polychromasia Hypochromasia Poikilocytosis Anisocytosis Microcytosis Macrocytosis Spherocytes Pappenheimer Bodies Sickle Cells Target Cells Tear Drop Cells Ovalocytes Stomatocytes Helmet Cells Turpin-[place] Bodies [place] Rings Gardner Cells Bite Cells Crenated Cell Elliptocytes Acanthocytes (Spur) Rouleaux Hemoglobin C Crystals Schistocytes Malaria parasites Villa Bodies Hem Pathologist Commnt Sodium (137-145) mmol/L Potassium (3.6-5.0) mmol/L Chloride (98-107) mmol/L Carbon Dioxide (22-30) mmol/L Anion Gap mmol/L BUN (9-20) mg/dL Creatinine (0.8-1.5) mg/dL Estimated GFR ml/min BUN/Creatinine Ratio % Glucose (75-100) mg/dL Calcium (8.4-10.2) mg/dL Magnesium 1.90 (1.7-2.3) mg/dL Total Bilirubin (0.1-1.2) mg/dL AST (5-40) units/L ALT (7-56) units/L Alkaline Phosphatase (35-129) units/L Total Creatine Kinase 73 (55-170) units/L Total Protein (6.3-8.2) g/dL Albumin (3.9-5) g/dL Albumin/Globulin Ratio % Urine Color (Yellow) Urine Turbidity (Clear) Urine pH (5.0-7.0) Ur Specific [place] (1.003-1.030) Urine Protein (Negative) mg/dL Urine Glucose (UA) (Negative) mg/dL Urine Ketones (Negative) mg/dL Urine Blood (Negative) Urine Nitrite (Negative) Urine Bilirubin (Negative) Urine Urobilinogen (<2.0) mg/dL Ur Leukocyte Esterase (Negative) Urine WBC (Auto) (0.0-6.0) /HPF Urine RBC (Auto) (0.0-6.0) /HPF U Epithel Cells (Auto) (0-13.0) /HPF Urine Bacteria (Auto) (Negative) /HPF Urine Mucus /HPF Salicylates (2.8-20.0) mg/dL Urine Opiates Screen Urine Methadone Screen Acetaminophen < 5.0 L (10.0-30.0) ug/mL Ur Barbiturates Screen Ur Phencyclidine Scrn Ur Amphetamines Screen U Benzodiazepines Scrn Urine Cocaine Screen U Marijuana (THC) Screen Drugs of Abuse Note Plasma/Serum Alcohol < 0.01 (0-0.07) % 09/09/19 09/09/19 Range/Units 19:27 19:27 WBC (4.5-11.0) K/mm3 RBC (3.65-5.03) M/mm3 Hgb (11.8-15.2) gm/dl Hct (35.5-45.6) % MCV (84-94) fl MCH (28-32) pg MCHC (32-34) % RDW (13.2-15.2) % Plt Count (140-440) K/mm3 [place] % (Auto) Add Manual Diff Total Counted Seg Neuts % (Manual) (40.0-70.0) % Band Neutrophils % % Lymphocytes % (Manual) (13.4-35.0) % Reactive Lymphs % (Man) % Monocytes % (Manual) (0.0-7.3) % Eosinophils % (Manual) (0.0-4.3) % Basophils % (Manual) (0.0-1.8) % Metamyelocytes % % Myelocytes % % Promyelocytes % % Blast Cells % % Nucleated RBC % Seg Neutrophils # Man (1.8-7.7) K/mm3 Band Neutrophils # K/mm3 Lymphocytes # (Manual) (1.2-5.4) K/mm3 Abs React Lymphs (Man) K/mm3 Monocytes # (Manual) (0.0-0.8) K/mm3 Eosinophils # (Manual) (0.0-0.4) K/mm3 Basophils # (Manual) (0.0-0.1) K/mm3 Metamyelocytes # K/mm3 Myelocytes # K/mm3 Promyelocytes # K/mm3 Blast Cells # K/mm3 WBC Morphology Hypersegmented Neuts Hyposegmented Neuts Hypogranular Neuts Smudge Cells Toxic Granulation Toxic Vacuolation Dohle Bodies Pelger-Huet Anomaly Tello Rods Platelet Estimate Clumped Platelets Plt Clumps, EDTA Large Platelets Giant Platelets Platelet Satelliting Plt Morphology Comment RBC Morphology Dimorphic RBCs Polychromasia Hypochromasia Poikilocytosis Anisocytosis Microcytosis Macrocytosis Spherocytes Pappenheimer Bodies Sickle Cells Target Cells Tear Drop Cells Ovalocytes Stomatocytes Helmet Cells [place] Bodies [place] Rings Joan Cells Bite Cells Crenated Cell Elliptocytes Acanthocytes (Spur) Rouleaux Hemoglobin C Crystals Schistocytes Malaria parasites Villa Bodies Hem Pathologist Commnt Sodium (137-145) mmol/L Potassium (3.6-5.0) mmol/L Chloride (98-107) mmol/L Carbon Dioxide (22-30) mmol/L Anion Gap mmol/L BUN (9-20) mg/dL Creatinine (0.8-1.5) mg/dL Estimated GFR ml/min BUN/Creatinine Ratio % Glucose (75-100) mg/dL Calcium (8.4-10.2) mg/dL Magnesium (1.7-2.3) mg/dL Total Bilirubin (0.1-1.2) mg/dL AST (5-40) units/L ALT (7-56) units/L Alkaline Phosphatase (35-129) units/L Total Creatine Kinase (55-170) units/L Total Protein (6.3-8.2) g/dL Albumin (3.9-5) g/dL Albumin/Globulin Ratio % Urine Color Yellow (Yellow) Urine Turbidity Clear (Clear) Urine pH 5.0 (5.0-7.0) Ur Specific [place] 1.021 (1.003-1.030) Urine Protein <15 mg/dl (Negative) mg/dL Urine Glucose (UA) Neg (Negative) mg/dL Urine Ketones Neg (Negative) mg/dL Urine Blood Neg (Negative) Urine Nitrite Pos (Negative) Urine Bilirubin Neg (Negative) Urine Urobilinogen 2.0 (<2.0) mg/dL Ur Leukocyte Esterase Tr (Negative) Urine WBC (Auto) 14.0 H (0.0-6.0) /HPF Urine RBC (Auto) 7.0 (0.0-6.0) /HPF U Epithel Cells (Auto) < 1.0 (0-13.0) /HPF Urine Bacteria (Auto) 1+ (Negative) /HPF Urine Mucus 1+ /HPF Salicylates (2.8-20.0) mg/dL Urine Opiates Screen Presumptive negative Urine Methadone Screen Presumptive negative Acetaminophen (10.0-30.0) ug/mL Ur Barbiturates Screen Presumptive negative Ur Phencyclidine Scrn Presumptive negative Ur Amphetamines Screen Presumptive negative U Benzodiazepines Scrn Presumptive negative Urine Cocaine Screen Presumptive negative U Marijuana (THC) Screen Presumptive negative Drugs of Abuse Note Disclamer Plasma/Serum Alcohol (0-0.07) % - EKG Data -: EKG Interpreted by [place] - EKG Data 09/09/19 20:10 No prior available for comparison. Sinus rhythm, 84 bpm, left axis deviation, poor R wave progression, motion artifact, intervals grossly within normal limits, not a STEMI. - Radiology Data Radiology results: pending, report reviewed, image reviewed interpreted by me: X-ray of the chest shows chronic findings, no acute disease Print Report Referring Physician: MAGALY TAN Patient Name: BREA PERRY Date of : 1950 Sex: Male Report Date: 2019-09-09 Report Status: Finalized Findings [facility] [address] [place] [address] Cat Scan Report Signed Patient: BREA PERRY MR#: [id number] 307 : 1950 Acct:[id number] Age/Sex: 68 / M ADM Date: 09/09/19 Loc: ED Attending Dr: Ordering Physician: MAGALY TAN MD Date of Service: 09/09/19 Procedure(s): CT head/brain wo con Accession Number(s): [id number] cc: MAGALY TAN MD NONENHANCED CT SCAN OF THE HEAD: INDICATION / CLINICAL INFORMATION: 68 years Male; HX OF SEIZURE, CONFUSED. TECHNIQUE: Routine CT head without contrast. All CT scans at this location are performed using CT dose reduction for ALARA by means of automated exposure control. COMPARISON: CT scan of the head from 09/05/2019 FINDINGS: BRAIN / INTRACRANIAL CONTENTS: CT findings remain unchanged. Large right frontal craniotomy with the minimal bony remodeling is seen. Encephalomalacia is seen in the right lateral frontal lobe and parietal lobe lobe. Compensatory enlargement of left lateral ventricle is seen. Surgical clips are seen near the frontoparietal junction laterally. In addition, focal areas of calcification are seen in the branches of right middle cerebral artery in the sylvian fissure. Seen in the last CT scan, increased extra cerebellar space is seen bilaterally. Volume loss is seen in the right medial temporal lobe. CRANIOCERVICAL JUNCTION: No significant abnormality. ORBITS: No significant abnormality of visualized orbits. SINUSES / MASTOIDS: One of the left mid ethmoid air cells is opacified. ADDITIONAL FINDINGS: None. 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; volume loss in the right hippocampus Signer Name: Janessa Mccall MD Signed: 09/09/2019 9:59 PM Workstation Name: [id number] [id number] Transcribed By: BS Dictated By: Janessa Trimble MD Electronically Authenticated By: Janessa Trimble MD Signed Date/Time: 09/09/192158 DD/ 47 Print Report Referring Physician: MAGALY TAN Patient Name: BREA PERRY Date of : 1950 Sex: Male Report Date: 2019-09-09 Report Status: Finalized Findings [address] [address] XRay Report Signed Patient: BREA PERRY MR#: [id number] 307 : 1950 Acct:[id number] Age/Sex: 68 / M ADM Date: 09/09/19 Loc: ED Attending Dr: Ordering Physician: MAGALY TAN MD Date of Service: 09/09/19 Procedure(s): XR chest 1V ap Accession Number(s): [id number] cc: MAGALY TAN MD Fluoro Time In Minutes: CHEST 1 VIEW INDICATION / CLINICAL INFORMATION: sz left sided shoulder pain. COMPARISON: None available. FINDINGS: SUPPORT DEVICES: None. HEART / MEDIASTINUM: No significant abnormality. LUNGS / PLEURA: No acute airspace disease or pleural fluid. No pneumothorax. Mildly prominent interstitial markings throughout the lungs, likely chronic. Old proximal left humerus fracture and multiple old right-sided rib fractures. There may also be some old left rib fractures. Diffuse, subjective osteopenia noted. IMPRESSION: No acute cardiac pulmonary abnormality. Signer Name: Donis Curiel MD Signed: 09/09/2019 9:51 PM Workstation Name: [id number] Transcribed By: DMMc Dictated By: Donis Curiel MD Electronically Authenticated By: Donis Curiel MD Signed Date/Time: 09/09/192150 DD/ 38 Print Report Referring Physician: MAGALY TAN Patient Name: BREA PERRY Date of : 1950 Sex: Male Report Date: 2019-09-09 Report Status: Finalized Findings [address] [address] Cat Scan Report Signed Patient: BREA PERRY MR#: [id number] 307 : 1950 Acct:[id number] Age/Sex: 68 / M ADM Date: 09/09/19 Loc: ED Attending Dr: Ordering Physician: MAGALY TAN MD Date of Service: 09/09/19 Procedure(s): CT cervical spine wo con Accession Number(s): [id number] cc: MAGALY TAN MD Exam: CT cervical spine History: Seizure, AMS, weak, unable to clear C-spine; Technique: Contiguous thin cut axial images obtained through the cervical spine. Sagittal and coronal reconstructions performed by the technologist. All CT scans at this location are performed using CT dose reduction for ALARA by means of automated exposure control. Findings: No priors. There is no evidence of fracture or traumatic subluxation. Vertebral bodies are normal in height and alignment. No vertebral compression fracture or fracture involving the bony canal in the cervical spine. Focal midline bulging disc is seen at C2-C3 disc level. Neuroforamina are normal. At C3-C4 disc level, facet joint hypertrophic changes are seen. Bulging disc is seen. At C4-C5 disc level, facet joint h ypertrophic changes are seen on the right side. Neuroforamina are normal. At C5- C6 disc level, disc osteophyte complex is seen towards the left side. Neuroforamina are normal. At C6-C7 disc level, shallow disc osteophyte complex is seen. C7-T1 disc space is normal. Calcification is seen in the carotid bifurcations bilaterally. Impression: No signs of acute bony trauma to the cervical spine. Minimal spondylotic changes in the mid cervical level. Signer Name: Janessa Mccall MD Signed: 09/09/2019 10:04 PM Workstation Name: [id number] Transcribed By: BS Dictated By: Janessa Trimble MD Electronically Authenticated By: Janessa Trimble MD Signed Date/Time: 09/09/192203 DD/ 58 Critical care attestation.: If time is entered above; I have spent that time in minutes in the direct care of this critically ill patient, excluding procedure time. ED Disposition Is pt being admited?: No Does the pt Need Aspirin: No
[2019-09-09 19:25] LABS: Total Cells Counted 100
[2019-09-09 19:26] LABS: Stomatocytes Few
[2019-09-09 19:27] LABS: Anisocytosis Few; Large Platelets Few; Platelet Estimate Consistent w Auto
[2019-09-09 19:49] LABS: Bacteria,Urine 1+ /HPF (Negative); Bilirubin,Urine NEG (Negative); Blood,Urine NEG (Negative); Color,Urine Yellow (Yellow); Mucus,Urine 1+ /HPF; Protein,Urine <15 mg/dL mg/dL (Negative)
[2019-09-09 19:56] LABS: Amphetamine Screen,Urine PRESUMPTIVE NEGATIVE; Benzodiazepines Screen,Urine PRESUMPTIVE NEGATIVE; Cannabinoid Screen,Urine PRESUMPTIVE NEGATIVE; Cocaine Screen,Urine PRESUMPTIVE NEGATIVE; Methadone Screen,Urine PRESUMPTIVE NEGATIVE; Opiate Screen,Urine PRESUMPTIVE NEGATIVE
--- NOTE | 2019-09-09 21:55 | XRay Report ---
CHEST 1 VIEW INDICATION / CLINICAL INFORMATION: sz left sided shoulder pain. COMPARISON: None available. FINDINGS: SUPPORT DEVICES: None. HEART / MEDIASTINUM: No significant abnormality. LUNGS / PLEURA: No acute airspace disease or pleural fluid. No pneumothorax. Mildly prominent interst itial markings throughout the lungs, likely chronic. Old proximal left humerus fracture and multiple old right-sided rib fractures. There may also be some old left rib fractures. Diffuse, subjective osteopenia noted. IMPRESSION: No acute cardiac pulmonary abnormality. Signer Name: Donis Curiel MD Signed: 09/09/2019 9:51 PM Workstation Name: [id number]
[2019-09-09] MEDS ORDERED: NON-FORMULARY EACH (Levetiracetam [Keppra Tab] 750 MG) PO SCH (22:00)
--- NOTE | 2019-09-09 22:04 | Cat Scan Report ---
NONENHANCED CT SCAN OF THE HEAD: INDICATION / CLINICAL INFORMATION: 68 years Male; HX OF SEIZURE, CONFUSED. TECHNIQUE: Routine CT head without contrast. All CT scans at this location are performed using CT dos e reduction for ALARA by means of automated exposure control. COMPARISON: CT scan of the head from 09/05/2019 FINDINGS: BRAIN / INTRACRANIAL CONTENTS: CT findings remain unchanged. Large right frontal craniotomy with the minimal bony remodeling is seen. Encephalomalacia is seen in the right lateral frontal lobe and parietal lobe lobe. Compensatory enlar gement of left lateral ventricle is seen. Surgical clips are seen near the frontoparietal junction laterally. In addition, focal areas of calci fication are seen in the branches of right middle cerebral artery in the sylvian fissure. Seen in the last CT scan, increased extra cerebellar space is seen bilaterally. Volume loss is seen in the right medial temporal lobe. CRANIOCERVICAL JUNCTION: No significant abnormality. ORBITS: No significant abnormality of visualized orbits. SINUSES / MASTOIDS: One of the left mid ethmoid air cells is opacified. ADDITIONAL FINDINGS: None. 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
--- NOTE | 2019-09-09 22:08 | Cat Scan Report ---
Exam: CT cervical spine History: Seizure, AMS, weak, unable to clear C-spine; Technique: Contiguous thin cut axial images obtained through the cervical spine. Sagittal and madera l reconstructions performed by the technologist. All CT scans at this location are performed using CT dose reduction for ALARA by means of automated exposure control. Findings: No priors. There is no evidence of fracture or traumatic subluxation. Vertebral bodies are normal in height and alignment. No vertebral compression fracture or fracture in volving the bony canal in the cervical spine. Focal midline bulging disc is seen at C2-C3 disc level. Neuroforamina are normal. At C3-C4 disc level, facet joint hypertrophic changes are seen. Bulging disc is seen. At C4-C5 disc level, facet joint hypertrophic changes are seen on the right side. Neuroforamina are n ormal. At C5-C6 disc level, disc osteophyte complex is seen towards the left side. Neuroforamina are normal. At C6-C7 disc level, shallow disc osteophyte complex is seen. C7-T1 disc space is normal. Calcification is seen in the carotid bifurcations bilaterally. Impression: No signs of acute bony trauma to the cervical spine. Minimal spondylotic changes in the mid cervical level. Signer Name: Janessa Mccall MD Signed: 09/09/2019 10:04 PM Workstation Name: [id number]
[2019-09-10] MEDS: levETIRAcetam 500 MG TAB PO SCH ×3 (00:07→22:15)
[2019-09-10] MEDS: NITROFURANTOIN MONOHYD/M-CRYST 100 MG CAP PO SCH ×3 (00:07→22:16)
[2019-09-10] MEDS ORDERED: ACETAMINOPHEN 325 MG TAB PO STA (15:47)
[2019-09-10] MEDS ORDERED: KETOROLAC 60 MG/2 ML INJ IM ONE (20:21)
[2019-09-11] MEDS: levETIRAcetam 500 MG TAB PO SCH ×2 (09:35→21:32)
[2019-09-11] MEDS: NITROFURANTOIN MONOHYD/M-CRYST 100 MG CAP PO SCH ×2 (09:35→21:32)
[2019-09-11] MEDS ORDERED: ACETAMINOPHEN 500 MG TAB PO ONE (10:33)
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
[2019-09-11] MEDS ORDERED: diphenhydrAMINE 25 MG CAP PO ONE (21:45)
[2019-09-12] MEDS: NITROFURANTOIN MONOHYD/M-CRYST 100 MG CAP PO SCH ×2 (09:47→22:07)
[2019-09-12] MEDS: levETIRAcetam 500 MG TAB PO SCH ×2 (09:47→22:07)
[2019-09-12] MEDS ORDERED: ACETAMINOPHEN 325 MG TAB ONE (23:44)
[2019-09-12] MEDS: ACETAMINOPHEN 325 MG TAB PO PRN (23:48)
[2019-09-13] MEDS: NITROFURANTOIN MONOHYD/M-CRYST 100 MG CAP PO SCH (13:10)
[2019-09-13] MEDS: levETIRAcetam 500 MG TAB PO SCH (13:10)
[2019-09-13] MEDS: ACETAMINOPHEN 325 MG TAB PO PRN (13:18)
[2019-09-13 13:21] VITALS: BP 106/40
== END 2019-09-13 13:25 | disposition home or self-care (01) ==
LOC: ED 17:13
DX: G40.909 Epilepsy, unspecified, not intractable, without status epilepticus (principal); F03.90 Unspecified dementia, unspecified severity, without behavioral disturbance, psychotic disturbance, mood disturbance, and anxiety; Z71.89 Other specified counseling; Z88.0 Allergy status to penicillin; Z79.899 Other long term (current) drug therapy
CPT/HCPCS: 36415; 70450; 71045; 72125; 80053; 80307; 81001; 82550; 83735; 85007; 85025; 87086; 93005; 93010; 96372; 99285; J1885; 80320; G0480